=== PATIENT | male | born 1985 | race Caucasian/White ===

== ENCOUNTER 2017-10-23 11:34 | Emergency (ER) | payer SELFPAY ==
[~2017-10-23] VITALS: Ht 172.7 cm; Wt 77.0 kg
[2017-10-23 11:38] VITALS: BP 118/65
[2017-10-23] MEDS ORDERED: MOTRIN800 MG PO (12:39)
== END 2017-10-23 13:12 | disposition home or self-care (01) | DRG 605 ==
LOC: ED 11:34
PROC: 0HQ1XZZ Repair Face Skin, External Approach (ICD-10-PCS; principal; 2017-10-23)
DX: S00.81XA Abrasion of other part of head, initial encounter (principal); S09.90XA Unspecified injury of head, initial encounter; F17.210 Nicotine dependence, cigarettes, uncomplicated; S80.211A Abrasion, right knee, initial encounter; S20.311A Abrasion of right front wall of thorax, initial encounter; S40.212A Abrasion of left shoulder, initial encounter; S16.1XXA Strain of muscle, fascia and tendon at neck level, initial encounter; Y35.893A Legal intervention involving other specified means, suspect injured, initial encounter